=== PATIENT | male | born 1960 ===

== ENCOUNTER 2018-10-11 18:36 | Outpatient (CLI) | payer OTHER | END 2018-10-11 19:36 | disposition home or self-care (01) | LOC: LAB 18:36 | DX: N30.00 Acute cystitis without hematuria (principal) ==

== ENCOUNTER 2019-05-05 07:24 | Outpatient (CLI) | payer OTHER | END 2019-05-05 07:30 | disposition home or self-care (01) | LOC: LAB 07:24 | DX: L20.89 Other atopic dermatitis (principal); I10 Essential (primary) hypertension; E03.8 Other specified hypothyroidism; E55.9 Vitamin D deficiency, unspecified; D64.89 Other specified anemias; Z12.11 Encounter for screening for malignant neoplasm of colon; E78.2 Mixed hyperlipidemia ==